=== PATIENT | female | born 1970 | race Two or more races ===

== ENCOUNTER 2025-06-13 08:18 | Emergency (ER) | payer MEDICAID, SELFPAY ==
[2025-06-13 08:19] VITALS: BMI 27.6
[2025-06-13 08:26] VITALS: BP 157/84; PULSE 91; RESP 18; TEMP 36.8; O2SAT 96
--- NOTE | 2025-06-13 08:30 | XR_ITS ---
Examination: CT cervical spine without contrast 2-D sagittal reconstructions 2-D coronal reconstructions 3-D reconstructions. Exam date and time:June 13, 2025 1037 hours INDICATIONS: Onset neck pain beginning one week ago CTDI:vol (mGy) 16.2 DLP: (mGycm) 353 Technique: Multiple 2 mm axial sections of the cervical spine have been obtained. The coronal and sagittal reconstructions have been obtained. 3-D reconstructions have been obtained. Low dose protocols were performed. One or more of the following dose reduction techniques were used; automated exposure control, adjustment of the mA and/or KV according to patient size, use of iterative reconstruction technique. Findings: Axial sections demonstrate intact base of the skull. C1 exhibit satisfactory relationship to the odontoid. No acute cervical vertebral body fracture seen. Alignment posterior spinous processes satisfactory. C3-C4 partially calcified 3 mm central subarticular osteophyte disc complex C4-C5 5 mm partially calcified central osteophyte disc complex C5-C6 4 mm central calcified osteophyte disc complex with mild left neural foraminal stenosis Impression: No acute cervical fracture. Calcified osteophyte disc complexes C3-C4, C4-C5, C5-C6, suggest elective MRI cervical spine without contrast follow-up
[2025-06-13] MEDS: KETOROLAC INJ 30 MG/ML VIAL IM (08:37)
[2025-06-13] MEDS: DIAZEPAM 5 MG TABLET PO (08:38)
--- NOTE | 2025-06-13 11:12 | PD.EDNECK ---
ED Neck Injury Pain RME/HPI General Chief Complaint: Extremity Problem,Nontraumatic Stated Complaint: EDMONDS, NECK STIFFNESS, SHOULDER PAIN X1 Time Seen by Provider: 06/13/25 08:30 Arrival date/time: 06/13/25 08:18 55-year-old female presents with complaints of acute on chronic neck pain patient reports pain worse with movement patient reports it is ongoing for last couple of weeks Limitations: no limitations Related Data Home Medications ?Medication ?Instructions ?Recorded ?Confirmed pravastatin 40 mg tablet 40 mg PO HS #0 tabs 05/31/17 09/12/19 (Pravachol) aspirin 81 mg tablet,delayed 81 mg PO QDAY 09/12/19 05/02/23 release hydroxyzine HCl 50 mg tablet 50 mg PO HS 09/12/19 09/12/19 insulin glargine 100 unit/mL (3 20 unit subcut QDAY 09/12/19 09/14/19 mL) subcutaneous pen (Basaglar KwikPen U-100 Insulin) valsartan 40 mg tablet 40 mg PO QDAY 09/12/19 09/12/19 Previous Rx's ?Medication ?Instructions ?Recorded blood sugar diagnostic (Blood #100 ea 09/14/19 Glucose Test strips) hydrocodone 5 mg-acetaminophen 325 1 tab PO BID PRN pain #10 tabs 06/13/25 mg tablet meloxicam 7.5 mg tablet 7.5 mg PO QDAY 7 days #7 tabs 06/13/25 Allergies Allergy/AdvReac Type Severity Reaction Status Date / Time No Known Allergies Allergy Verified 06/13/25 08:22 Review of Systems Review of Systems Systems Reviewed: All systems reviewed, normal except as documented Constitutional Constitutional: Reports system reviewed and no additional complaints, except as documented, Denies fever(s) and Denies headache(s) Eyes Eyes: Reports system reviewed and no additional complaints, except as documented and Denies blurry vision ENT Ears, Nose, Mouth, and Throat: Reports system reviewed and no additional complaints, except as documented, Denies headache(s), Denies nasal congestion, Denies nasal discharge and Reports neck pain Cardiovascular Cardiovascular: Reports system reviewed and no additional complaints, except as documented, Denies chest pain and Denies dyspnea Respiratory Respiratory: Reports system reviewed and no additional complaints, except as documented, Denies chest congestion, Denies cough and Denies dyspnea Gastrointestinal Gastrointestinal: Reports system reviewed and no additional complaints, except as documented and Denies abdominal pain Musculoskeletal Musculoskeletal: Reports system reviewed and no additional complaints, except as documented, Denies deformity, Reports neck pain, Denies numbness and Denies tingling Integumentary/Breasts Skin/Breast: Reports system reviewed and no additional complaints, except as documented and Denies rash Neurologic Neurologic: Reports system reviewed and no additional complaints, except as documented, Reports as per HPI, Denies headache(s), Denies numbness and Denies tingling Past Medical History Past Medical History NEUROLOGIC: Negative Neurological Disorders CARDIAC: Positive Hypercholesterolemia and Hypertension; Negative Congestive Heart Failure RESPIRATORY: Negative Chronic Obstructive Pulmonary Disease (COPD) GASTROINTESTINAL: Negative Gastrointestinal Disorders GENITOURINARY: Negative Genitourinary Disorders or Renal Disease REPRODUCTIVE: Negative Pelvic Inflammatory Disease MUSCULOSKELETAL: Negative Musculoskeletal Disorders ENDOCRINE: Positive Diabetes Mellitus Type 1; Negative Diabetes Mellitus Type 2 HEMATOLOGIC: Negative Blood Disorders OTHER HISTORY: Negative Autoimmune Disease, Anesthesia Reactions or Cancer Surgical History SURGICAL: Negative Cardiac Surgery, Endocrine Surgery, Ear Surgery, Abdominal Surgery, Nephrectomy, Joint Replacement, Neurologic Surgery or Mastectomy Social History SMOKING STATUS: Never smoker SECOND HAND EXPOSURE: No SUBSTANCE USE: does not use ED Exam General Limitations: Present no limitations General appearance: Present alert and in no apparent distress Head Head exam: Present atraumatic, normocephalic and normal inspection Eye Eye exam: Present normal appearance, PERRL and EOMI; Absent conjunctival injection ENT ENT exam: Present normal exam, normal oropharynx and mucous membranes moist Neck Neck exam: Present normal inspection, full ROM and trachea midline Chest Chest inspection: Present normal inspection and symmetric chest wall rise Respiratory Respiratory exam: Present normal lung sounds bilaterally; Absent respiratory distress Cardiovascular Cardiovascular exam: Present regular rate, normal rhythm and normal heart sounds Abdominal Exam Abdominal exam: Present soft and normal bowel sounds; Absent distention, tenderness, guarding, rebound or rigidity Extremities Exam Extremities exam: Present normal inspection and full ROM Back Exam Back exam: Present normal inspection and full ROM Neurological Exam Neurological exam: Present alert, oriented X3 and CN II-XII intact Psychiatric Psychiatric exam: Present normal affect and normal mood Skin Skin exam: Present warm, dry, intact and normal color Course Quality Measures none Orders Category Date Time Status Bedside Blood Glucose NOW Care 06/13/25 08:[address] cervical spine wo con Stat Exams 06/13/25 08:30 Completed Diazepam [Valium] Med 06/13/25 08:30 Discontinued 5 mg PO X1 ONE Ketorolac Inj [Toradol Inj] Med 06/13/25 08:30 Discontinued 30 mg IM X1 ONE Vital Signs Vital signs: Vital Signs Temperature 98.2 F 06/13/25 08:26 Pulse Rate 91 06/13/25 08:26 Respiratory Rate 18 06/13/25 08:26 Blood Pressure 157/84 H 06/13/25 08:26 Pulse Oximetry (%) 96 06/13/25 08:26 Oxygen Delivery Method Room Air 06/13/25 08:26 O2 saturation 96% on room air with normal limits Neck Pain MDM Narrative MDM Narrative:: 55-year-old female presents with complaints of acute on chronic neck pain patient reports pain worse with movement patient reports it is ongoing for last couple of weeks On exam patient well-appearing patient does not appear toxic no acute distress Imaging obtained I reviewed the patient's imaging with her I gave her a copy of her CT report instructed to have an outpatient MRI Patient reports no numbness tingling Patient given pain medication here which improved her symptoms significantly Patient discharged home in no distress to follow-up with primary care doctor in the next 24 to 48 hours and for any worsening symptoms to return to the ER immediately Patient data External records reviewed:: [facility] previous records Clinical information provided by:: patient Social determinants that could affect healthcare access:: none Patient has the following chronic illnesses:: None How is presenting disease/condition affected by chronic disease/condition?: no chronic disease Evaluation data The following diagnostics were reviewed and interpreted by me:: radiology exam(s) Lab and/or radiology exams considered but not ordered:: radiology obtained Interpretation Summary: Reviewed by me Medications / Prescriptions Medications or Prescriptions considered but not ordered:: Given Medication administrations:: Medication Administration History Discontinued Medications Diazepam (Diazepam 5 Mg Tablet) 5 mg PO X1 ONE Stop: 06/13/25 08:31 Last Admin: 06/13/25 08:38 Dose: 5 mg Documented By: WALKER Ketorolac Tromethamine (Ketorolac Inj 30 Mg/Ml Vial) 30 mg IM X1 ONE Stop: 06/13/25 08:31 Last Admin: 06/13/25 08:37 Dose: 30 mg Documented By: WALKER Given Consultations Consultation(s) initiated? (list below): No Diagnosis Neck Differential Diagnosis: disc disorder of cervical region, whiplash injury to neck and other Most likely diagnosis given after review of the tests above:: Neck pain Admission Indicated Admission indicated?: not indicated Admission Request Was there a request for admission?: No Disposition Plan Disposition Plan: Discharge Discharge Attestation Discharge Attestation: The patient and all family members were given an opportunity to ask questions and understood the discharge instructions. Discharge instructions specifically effects, indications for sooner follow up or return to the emergency department, and the expected course of current diagnosis. Patient condition: Stable Discharge Plan Plan Patient Disposition: HOME (Self Care) Discharge Disposition comment: Stable Prescriptions/Referrals Prescriptions/Med Rec: New hydrocodone-acetaminophen 5-325 mg tablet 1 tab PO BID MDD 10 PRN (Reason: pain) Qty: 10 0RF meloxicam 7.5 mg tablet 7.5 mg PO QDAY 7 Days Qty: 7 0RF No Action pravastatin [Pravachol] 40 MG tablet 40 mg PO HS Qty: 0 aspirin 81 mg Tablet,Delayed Release (Dr/Ec) 81 mg PO QDAY hydroxyzine HCl 50 mg tablet 50 mg PO HS Patient Comments: TAKE 1 TO 2 TABLETS BY MOUTH AT BEDTIME FOR INSOMNIA valsartan 40 mg tablet 40 mg PO QDAY Patient Comments: TAKE 1 TABLET BY MOUTH ONCE DAILY FOR KINDEY PROTECTION Basaglar KwikPen U-100 Insulin 100 unit/mL (3 mL) insulin pen 20 unit subcut QDAY Patient Comments: INJECT 30 UNITS SUBCUTANEOUSLY IN THE MORNING AFTER BREAKFAST (DME) Blood Glucose Test strip See Dose Instructions .ROUTE .MEDSUPPLY Qty: 100 0RF Dose Instruction: As directed Rx Instructions: As directed Referrals: Victoria Brambila PA-C [Primary Care Provider] - In 1 week Problem List Clinical Impression: DDD (degenerative disc disease), cervical, Cervical osteophyte Patient/Caregiver Discharge Instructions Education Materials: ED Neck Pain No Trauma Additional Instructions: Please follow up with your primary care doctor in the next 24-48hrs for any worsening symptoms return here immediately Please bring copy of your CT report to your primary care doctor request outpatient MRI for worsening symptoms return immediately Print Language: Singaporean Stand Alone Forms: Radha Award Info., Patient Portal Info Letter CHELSY/ALEXANDRU Supervising Physician CHELSY/ALEXANDRU Supervising Physician: Dr. dolan
== END 2025-06-13 12:07 | disposition home or self-care (01) ==
PROVIDERS: Emergency Provider Emergency Medicine; PCP Physician Assistant
DX: M50.30 Other cervical disc degeneration, unspecified cervical region (principal); M25.78 Osteophyte, vertebrae; I10 Essential (primary) hypertension; E78.00 Pure hypercholesterolemia, unspecified; E10.9 Type 1 diabetes mellitus without complications; Z79.82 Long term (current) use of aspirin; Z79.899 Other long term (current) drug therapy; Z79.4 Long term (current) use of insulin
CPT/HCPCS: 72125; 99283; J1885; A9270

== ENCOUNTER → 2025-07-03 | Outpatient (CLI) | payer MEDICAID, SELFPAY ==
--- NOTE | 2025-07-03 09:15 | XR_ITS ---
Examination: Screening digital mammography, bilateral Computer aided detection 3-D breast Tomosynthesis, bilateral Date and time of exam: July 03, 2025, 0924 hours, compared to mammograms dating to September 25, 2013 Indication: Screening Technique: Nonmagnified MLO, CC views of the breasts to been obtained, reconstructed from 3-D Tomosynthesis images. R2 computer aided detection program utilized for evaluation of suspicious masses and/or abnormal calcifications. 3-D Tomosynthesis images obtained. Findings: Scattered areas of fibroglandular density. Benign calcifications. No interval suspicious masses Impression: BI-RADS category II: Benign Findings. Recommend 1 year follow-up mammogram.
== END | disposition home or self-care (01) ==
PROVIDERS: Referring Provider Physician Assistant; Visit Provider Physician Assistant
DX: Z12.31 Encounter for screening mammogram for malignant neoplasm of breast (principal); R92.323 Mammographic fibroglandular density, bilateral breasts; R92.1 Mammographic calcification found on diagnostic imaging of breast
CPT/HCPCS: 77063; 77067

== ENCOUNTER 2025-08-08 07:40 | Day surgery (SDC) | payer MEDICAID, SELFPAY ==
[2025-08-07 13:00] VITALS: BMI 28.1
[2025-08-08] VITALS (9 sets, daily range): BP systolic 114–171; BP diastolic 63–87; PULSE 77–84; RESP 13–19; TEMP 36.1–36.7; O2SAT 97–100; BMI 28.3
[2025-08-08] MEDS: fentaNYL CIT INJ 50 mCg/ML AMP 2ML (ASD USE ONLY) IVP (09:19)
[2025-08-08] MEDS: RINGERS LACTATED 500 ML 500 ML 20 ML IV (09:19)
[2025-08-08] MEDS: MIDAZOLAM INJ 1 MG/ML VIAL 2 ML (ASD USE ONLY) 2 MG IVP (09:19)
== END 2025-08-08 10:10 | disposition home or self-care (01) ==
PROVIDERS: PCP Physician Assistant; Referring Provider Internal Medicine Gastroenterology; Visit Provider Internal Medicine Gastroenterology
PROC: 0DBE8ZX Excision of Large Intestine, Via Natural or Artificial Opening Endoscopic, Diagnostic (ICD-10-PCS; CPT 45380; principal; 2025-08-08 09:45)
DX: K52.9 Noninfective gastroenteritis and colitis, unspecified (principal); K64.8 Other hemorrhoids; E11.9 Type 2 diabetes mellitus without complications
CPT/HCPCS: 45380; A4649; J1200; J2250; J3010; J7120